=== PATIENT | male | born 1930 | race Caucasian/White ===

== ENCOUNTER 2020-08-02 17:25 | Inpatient (IN) | payer OTHER ==
[~2020-08-02] VITALS: Ht 160 cm; Wt 72.7 kg
[2020-08-02 19:39] LABS: BASOPHIL 0.2 % (0-2); EOSINOPHIL 0.1 % (0-7); HCT 33.3 % (42.0-52.0); LYMPHOCYTE 3.1 % (15-48); MCH 28.1 pg (25.0-31.0); MCV 85.2 fL (78.0-100.0); MONOCYTE 9.8 % (0-12); MPV 10.5 fL (6.0-9.5); NEUTROPHIL 86.2 % (41-80); NRBC 0; PLT 189 K/uL (150-400); RBC 3.91 M/uL (4.70-6.00); RDW 14.5 % (11.5-14.0); WBC 18.8 K/uL (4.0-10.5)
[2020-08-02 19:39] LABS: BILIRUBIN NEGATIVE (NEGATIVE); BLOOD 1+ Ery/uL (NEGATIVE); CLARITY HAZY (CLEAR); COLOR YELLOW (YELLOW); GLUCOSE (U) NORMAL (NORMAL); LEUKOCYTES 2+ Leu/uL (NEGATIVE); NITRITE POSITIVE (NEGATIVE); PROTEIN NEGATIVE (NEGATIVE); UROBILINOGEN 0.2 mg/dL (0.2-1.0); pH 5.5 (5.0-9.0)
[2020-08-02 19:43] LABS: BACTERIA 2+; SQUAMOUS EPITHELIAL CELLS RARE; URINARY RBC RARE
[2020-08-02 19:53] LABS: ALBUMIN 3.2 g/dL (3.4-5.0); BILIRUBIN - TOTAL 0.5 mg/dL (0.2-1.0); BUN/CREAT RATIO (CALC) 21.7 RATIO; CREATININE 1.29 mg/dL (0.67-1.17); GLOBULIN (CALCULATION) 2.9 g/dL; POTASSIUM 4.1 mmol/L (3.5-5.1); TOTAL PROTEIN 6.1 g/dL (6.4-8.2)
[2020-08-02 20:08] LABS: LACTIC ACID 1.3 mmol/L (0.4-1.9)
[2020-08-03 06:15] LABS: BASOPHIL 0.2 % (0-2); EOSINOPHIL 0.6 % (0-7); HCT 31.5 % (42.0-52.0); HGB 10.1 g/dl (13.2-18.0); LYMPHOCYTE 10.1 % (15-48); MCH 27.7 pg (25.0-31.0); MCHC 32.1 g/dL (32.0-36.0); MCV 86.3 fL (78.0-100.0); MONOCYTE 8.8 % (0-12); MPV 10.9 fL (6.0-9.5); NEUTROPHIL 79.3 % (41-80); NRBC 0; PLT 163 K/uL (150-400); RBC 3.65 M/uL (4.70-6.00); RDW 14.6 % (11.5-14.0); WBC 19.3 K/uL (4.0-10.5)
[2020-08-03 06:31] LABS: BUN/CREAT RATIO (CALC) 19.2 RATIO; CREATININE 1.3 mg/dL (0.67-1.17)
--- NOTE | 2020-08-03 15:09 | NUR ---
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 Discharge is anticipated for 08/05. A referal was made to [facility] per patient choice. Affliation explained. A rw has been ordered from [facility]. Please notify [facility] at discharge, [phone].
[2020-08-03] MEDS ORDERED: ATIVAN1 MG PO (17:02)
[2020-08-03] MEDS ORDERED: LEXAPRO 10MG TA10 MG PO (17:02)
[2020-08-03] MEDS ORDERED: PREDNISOLO15 MG/5 ML OD (17:05)
[2020-08-03] MEDS ORDERED: SULFAMETHOXAZO1 EACH PO (17:06)
[2020-08-04] MEDS ORDERED: ASPIRIN EC81 MG PO (21:23)
[2020-08-04] MEDS ORDERED: CRESTOR10 MG PO (21:24)
[2020-08-04] MEDS ORDERED: MIRALAX17 GM PO (21:25)
[2020-08-04] MEDS ORDERED: FLOMAX 0.4 MG0.4 MG PO (21:25)
[2020-08-04] MEDS ORDERED: MULTIPLE VITAMIN (21:26)
[2020-08-04] MEDS ORDERED: PROSCAR5 MG PO (21:27)
[2020-08-04] MEDS ORDERED: vit d3 PO (21:28)
[2020-08-05 05:55] LABS: HCT 30.6 % (42.0-52.0); HGB 9.6 g/dl (13.2-18.0); MCH 27.7 pg (25.0-31.0); MCHC 31.4 g/dL (32.0-36.0); MCV 88.4 fL (78.0-100.0); MPV 10.7 fL (6.0-9.5); RBC 3.46 M/uL (4.70-6.00); RDW 14.7 % (11.5-14.0); WBC 10.9 K/uL (4.0-10.5)
[2020-08-05 06:17] LABS: BUN/CREAT RATIO (CALC) 16.3 RATIO; CREATININE 0.98 mg/dL (0.67-1.17)
--- NOTE | 2020-08-05 09:56 | NUR ---
I have reviewed the assessment documented by the Student Nurse and agree with the findings. AGREE WITH THE SHIFT ASSESSMENT ON THIS PATIENT.
[2020-08-05] MEDS ORDERED: LEVAQUIN500 MG PO (10:50)
== END 2020-08-05 13:45 | disposition home or self-care (01) | DRG 728 ==
LOC: FER 17:25 → FMS 21:04
PROVIDERS: Emergency Medicine; Nurse Practitioner; ADMIT Hospitalist
DX: N41.0 Acute prostatitis (principal); N17.9 Acute kidney failure, unspecified; E86.0 Dehydration; I95.1 Orthostatic hypotension; N18.9 Chronic kidney disease, unspecified; Z20.822 Contact with and (suspected) exposure to COVID-19; K76.9 Liver disease, unspecified; R91.8 Other nonspecific abnormal finding of lung field; J43.9 Emphysema, unspecified; K59.00 Constipation, unspecified; G89.29 Other chronic pain; M54.5 Low back pain; F41.9 Anxiety disorder, unspecified; Z98.890 Other specified postprocedural states; Z98.41 Cataract extraction status, right eye; Z98.42 Cataract extraction status, left eye; Z88.8 Allergy status to other drugs, medicaments and biological substances; Z87.891 Personal history of nicotine dependence
CPT/HCPCS: 36415; 70450; 71045; 71260; 73522; 80048; 80053; 81001; 83605; 84484; 85025; 87040; 87088; 93005; 97116; 97162; 97165; 97530-GP; 97535; J0696; J1650; J2543; J7030; Q9967; U0002